=== PATIENT | male | born 1960 | race Two or more races ===

== ENCOUNTER 2020-01-15 08:40 | Emergency (ER) | payer OTHER ==
[~2020-01-15] VITALS: Ht 167.6 cm; Wt 86.2 kg
[2020-01-15 08:46] VITALS: BP 186/73
[2020-01-15] MEDS ORDERED: LIDOCAINE 1% HCL (LOCAL ANESTH.) INJ 20ML MDV IJ ONE (09:45)
[2020-01-15] MEDS ORDERED: TETANUS-DIPTH-ACEL PERTUSSIS 0.5ML SYRG IM ONE (09:45)
[2020-01-15] MEDS ORDERED: ceFAZolin IM 1GM/2.5ML STERILE WATER IM ONE (10:00)
== END 2020-01-15 10:45 | disposition home or self-care (01) ==
LOC: ER 08:40
DX: S62.666A Nondisplaced fracture of distal phalanx of right little finger, initial encounter for closed fracture (principal); S61.206A Unspecified open wound of right little finger without damage to nail, initial encounter; W26.8XXA Contact with other sharp object(s), not elsewhere classified, initial encounter; Y93.89 Activity, other specified; Y92.69 Other specified industrial and construction area as the place of occurrence of the external cause; Y99.8 Other external cause status
CPT/HCPCS: 73130; 90471; 90715; 96372; 99284; J0690; J2001

== ENCOUNTER 2020-10-24 14:15 | Emergency (ER) | payer SELFPAY | END 2020-10-24 14:41 | disposition home or self-care (01) | LOC: ER 14:15 | DX: R68.83 Chills (without fever) (principal); B34.9 Viral infection, unspecified; E11.9 Type 2 diabetes mellitus without complications; I10 Essential (primary) hypertension | CPT/HCPCS: 71045 ==